=== PATIENT | female | born 1965 | race Caucasian/White ===

== ENCOUNTER 2023-10-21 16:57 | Emergency (ER) | payer OTHER ==
[~2023-10-21] VITALS: Ht 157.5 cm; Wt 52.3 kg
[2023-10-21 17:06] VITALS: BP 163/73; PULSE 102; RESP 18; TEMP 98.3; O2SAT 97
== END 2023-10-21 18:35 | disposition left against medical advice (07) ==
LOC: ER 16:59
DX: R51.9 Headache, unspecified (principal); Z88.0 Allergy status to penicillin; Z53.21 Procedure and treatment not carried out due to patient leaving prior to being seen by health care provider; W19.XXXA Unspecified fall, initial encounter; Y93.89 Activity, other specified; Y92.89 Other specified places as the place of occurrence of the external cause; Y99.8 Other external cause status